=== PATIENT | female | born 1985 | race American Indian/Alaskan Native ===

== ENCOUNTER 2017-12-27 09:15 | Inpatient (IN) | payer OTHER ==
[~2017-12-27] VITALS: Ht 180.3 cm; Wt 100.0 kg
[~2017-12-27 09:15] MED LIST: CLARITIN10 MG PO; DOXYCYCLINE HY100 MG PO; NORCO 5-325 TA1 EACH PO
--- NOTE | 2017-12-28 10:28 | PR ---
[facility] [address] [facility] [place], [place] [address] Signed PP Progress Notes Datetime Report Generated by CPN: 12/28/2017 10:28 SUBJECTIVE: [id number] Pain: Within normal limits Vital Signs: [id number] Vital Signs: Reviewed; Within Normal Limits EXAM: [id number] Cardiovascular: Not Done Respiratory: Not Done Abdomen/Uterus: Abnormal Lochia: Normal Vulva/Perineum: Not Done Breasts: Not Done CVA Tenderness: Not Done Extremities: Normal Incision: Not Applicable Progress: Normal Exam Comments: Fundus firm, NT @ U-1. H/H 10.9/31.1, WBC 14.5, plat 360k IMPRESSION/PLAN/PROCEDURES: [id number] Impression: Normal progression Plan: Continue present management Procedures: None Progress Notes: Doing well. Signing Physician: Katarzyna Foster MD Copies: ~ *Electronically Signed* 12/28/17 1028 KATARZYNA FOSTER MD PATIENT NAME: CYNMELANIEZAYSORIN PROGRESS NOTE DATE OF : 89 PHYSICIAN: KATARZYNA FOSTER MD RPT #: [id number] REPORT IS CONFIDENTIAL AND NOT TO BE RELEASED WITHOUT AUTHORIZATION
== END 2017-12-29 12:35 | disposition home or self-care (01) | DRG 782 ==
LOC: FBC 09:15
PROVIDERS: ADMIT Obstetrics & Gynecology
DX: O62.3 Precipitate labor (principal); O99.325 Drug use complicating the puerperium; O99.825 Streptococcus B carrier state complicating the puerperium; F12.90 Cannabis use, unspecified, uncomplicated; O99.63 Diseases of the digestive system complicating the puerperium; K42.9 Umbilical hernia without obstruction or gangrene; Z3A.40 40 weeks gestation of pregnancy; Z86.19 Personal history of other infectious and parasitic diseases; Z87.891 Personal history of nicotine dependence
CPT/HCPCS: 36415; 85027

== ENCOUNTER 2021-11-16 05:35 | Inpatient (IN) | payer OTHER ==
--- NOTE | 2021-11-16 06:22 | NUR ---
CALLED TO ATTEND DELIVERY OF TERM BABY WITH THIN MECONIUM. BABY DELIVERED AND WAS INITIALLY PLACED ON MOM AND DELAYED CORD CLAMPING. BABY DID NOT CRY AND HAD CENTRAL CYANOSIS. BABY BROUGHT TO WARMER AND STIMULATED AND BEGAN TO CRY VERY WELL WITH IMMEDIATE PINKING OF THE SKIN. RN CHECKED LUNGS AND HR WAS IN THE 150'S. BABY RETURNED TO MOM IN VERY SHORT AMOUNT OF TIME.
--- NOTE | 2021-11-17 11:07 | PR ---
[facility] [address] [place], [place] [address] Signed PP Progress Notes Datetime Report Generated by CPN: 11/17/2021 11:06 SUBJECTIVE: [id number] Pain: Within Normal Limits Nausea/Vomiting: Denies Flatus: Yes Bowel Movement: No Vital Signs: [id number] Vital Signs: Reviewed; Within Normal Limits Cardiovascular: Normal Respiratory: Normal Abdomen/Uterus: Normal Lochia: Normal Vulva/Perineum: Not Done Breasts: Not Done CVA Tenderness: Normal Extremities: Normal Incision: Not Applicable Progress: Normal Exam Comments: Fundus firm. Difficult to palpate due to large ventral hernia. IMPRESSION/PLAN/PROCEDURES: [id number] Impression: Normal Progression Plan: Discharge Progress Notes: Pt seen and examined. Doing well. Ambulating, voiding, and tolerating full diet. Pain and lochia minimal. well. No fevers/chills or other concerns. Desires d/c home today. Planning natural family planning. Signing Physician: Lou Melendez DO Copies: ~ *Electronically Signed* 11/17/21 1106 LOU MELENDEZ DO PATIENT NAME: SORIN CRUZ [place] PROGRESS NOTE DATE OF : 89 PHYSICIAN: LOU MELENDEZ DO RPT #: [id number] REPORT IS CONFIDENTIAL AND NOT TO BE RELEASED WITHOUT AUTHORIZATION
== END 2021-11-17 11:47 | disposition home or self-care (01) | DRG 807 ==
LOC: FBCO → FBC 05:50 → FBCO 11-18 14:46
PROVIDERS: ADMIT Obstetrics & Gynecology; ATTEND Obstetrics & Gynecology
PROC: 10E0XZZ Delivery of Products of Conception, External Approach (ICD-10-PCS; principal; 2021-11-16)
DX: O62.3 Precipitate labor (principal); Z37.0 Single live birth; K43.9 Ventral hernia without obstruction or gangrene; Z3A.39 39 weeks gestation of pregnancy; Z67.31 Type AB blood, Rh negative; Z20.822 Contact with and (suspected) exposure to COVID-19; O77.0 Labor and delivery complicated by meconium in amniotic fluid; O69.81X0 Labor and delivery complicated by cord around neck, without compression, not applicable or unspecified
CPT/HCPCS: 36415; 85027; 86850; 86900; 86901; 87502; A9270; U0003

== ENCOUNTER 2022-04-19 23:41 | Emergency (ER) | payer OTHER ==
[~2022-04-19] VITALS: Ht 182.9 cm; Wt 100.2 kg
[2022-04-19] MEDS ORDERED: HYDROCODON-ACE1 EA10 PO (23:58)
[2022-04-20] MEDS ORDERED: SILVADENE20 GM TOP (00:14)
== END 2022-04-20 01:35 | disposition home or self-care (01) ==
LOC: ED 23:41
DX: T25.212A Burn of second degree of left ankle, initial encounter (principal); T25.211A Burn of second degree of right ankle, initial encounter; T24.111A Burn of first degree of right thigh, initial encounter; T31.0 Burns involving less than 10% of body surface; Z87.891 Personal history of nicotine dependence; X12.XXXA Contact with other hot fluids, initial encounter
CPT/HCPCS: 16020; 90471; 90715; 99283-25; A9270; J1170; J2405

== ENCOUNTER 2023-06-24 05:55 | Inpatient (IN) | payer OTHER ==
[~2023-06-24] VITALS: Ht 177.8 cm; Wt 115.7 kg
[~2023-06-24 05:55] MED LIST changes: +HYDROCODON-ACE1 EA10 PO; +SILVADENE20 GM TOP
[2023-06-24 06:51] LABS: HEMOGLOBIN 12.2 g/dL (12.0-18.0); MCH 30.2 (27-36)
[2023-06-24 06:54] VITALS: BP 123/78
[2023-06-24 06:54] LABS: HEMATOCRIT 36.3 % (35.0-50.0); MCHC 33.7 g/dl (30-36); MCV 89.9 fl (81-99); RBC 4.03 M/ul (4.3-5.7); RDW 13.1 (10.5-15.0)
[2023-06-24 06:59] LABS: AMPHETAMINES, UR NEGATIVE (NEGATIVE); BARBITURATES, UR NEGATIVE (NEGATIVE); BENZODIAZEPINES, UR NEGATIVE (NEGATIVE); BUPRENORPHINE,UR NEGATIVE (NEGATIVE); COCAINE, UR NEGATIVE (NEGATIVE); MARIJUANA (THC), UR NEGATIVE (NEGATIVE); MDMA, UR NEGATIVE (NEGATIVE); METHADONE, UR NEGATIVE (NEGATIVE); METHAMPHETAMINE, UR NEGATIVE (NEGATIVE); OPIATES, UR NEGATIVE (NEGATIVE); OXYCODONE, UR NEGATIVE (NEGATIVE); PHENCYCLIDINE, UR NEGATIVE (NEGATIVE); TRICYCLIC ANTIDEPRESSANT, UR NEGATIVE (NEGATIVE)
[2023-06-24 08:00] LABS: ABO AB; ANTIBODY SCREEN NEGATIVE; RH POSITIVE
--- NOTE | 2023-06-24 11:37 | PR ---
[facility] [place] [facility] [address] [place], [place] [address] Signed Progress Notes IP Datetime Report Generated by CPN: 06/24/2023 11:37 PROGRESS NOTES: [id number] Impression: Normal Progression of Labor; Reassuring Heart Rate Procedures: Sterile Vag Exam Plan: Continue Present Management Informed Consent Obtain: Vaginal Delivery VITAL SIGNS: [id number] Vital Signs: Reviewed; Within Normal Limits EXAM: [id number] Dilatation: 3.0 Effacement: 70 Station: -3 Contractions: Irregular, increasing in discomfort MEMBRANES: [id number] Comments: Doing well. More uncomfortable w/ contractions. Continues to leak clear fluid. Will continue expectant management FETUS A: [id number] FHR Baseline: 140 Variability: Moderate 6-25bpm Accelerations: 15X15 Decelerations: None FHR Category: Category I Presentation: Vertex Comments on Fetus A: No evidence of metabolic acidosis FETUS B: [id number] Signing Physician: Lou Melendez DO Copies: ~ *Electronically Signed* 06/24/23 1137 LOU MELENDEZ (GODFREY) DO PATIENT NAME: SORIN CRUZ [place] PROGRESS NOTE DATE OF : 89 PHYSICIAN: LOU MELENDEZ) DO RPT #: [id number] REPORT IS CONFIDENTIAL AND NOT TO BE RELEASED WITHOUT AUTHORIZATION
--- NOTE | 2023-06-24 16:55 | PR ---
[facility] [address] [facility] [place], [place] [address] Signed Progress Notes IP Datetime Report Generated by CPN: 06/24/2023 16:55 PROGRESS NOTES: [id number] Impression: Normal Progression of Labor; Reassuring Heart Rate Procedures: Sterile Vag Exam Plan: Continue Present Management; Anticipate Vaginal Delivery Informed Consent Obtain: Vaginal Delivery VITAL SIGNS: [id number] Vital Signs: Reviewed; Within Normal Limits EXAM: [id number] Dilatation: 6.0 Effacement: 90 Station: -2 Contractions: q 2-3 minutes MEMBRANES: [id number] Comments: Pt seen and examined. Doing well. More uncomfortable and pressure w/ contractions. Declines epidural. Pt denies concerns FETUS A: [id number] FHR Baseline: 140 Variability: Moderate 6-25bpm Accelerations: 15X15 Decelerations: None FHR Category: Category I Presentation: Vertex Comments on Fetus A: No evidence of metabolic acidosis FETUS B: [id number] Signing Physician: Lou Melendez DO Copies: ~ *Electronically Signed* 06/24/23 8017 LOU MELENDEZ (GODFREY) DO PATIENT NAME: SORIN CRUZ [place] PROGRESS NOTE DATE OF : 89 PHYSICIAN: LOU MELENDEZ (GODFREY) DO RPT #: [id number] REPORT IS CONFIDENTIAL AND NOT TO BE RELEASED WITHOUT AUTHORIZATION
[2023-06-25 05:49] LABS: HEMATOCRIT 33.4 % (35.0-50.0); HEMOGLOBIN 11.3 g/dL (12.0-18.0); MCH 30.1 (27-36); MCHC 33.7 g/dl (30-36); MCV 89.3 fl (81-99); RBC 3.74 M/ul (4.3-5.7); RDW 13.3 (10.5-15.0)
--- NOTE | 2023-06-25 06:44 | NUR ---
FOOD AND BEVERAGE ASSISTANT MANAGER ROUNDS. PT GONE FOR PROCEDURE. IN ROOM EVIDENCED STRONG EMOTIONAL AND RELATIONAL RESOURCES. RESPONDED APPROPRIATELY TO SITUATION. PROVIDED SUPPORTIVE PRESENCE, HOSPITALITY, AND PRAYER. EXPRESSED APPRECIATION.
--- NOTE | 2023-06-25 13:58 | NUR ---
FBC ROUNDS. 15 MINUTES. PT EVIDENCED STRONG RELATIONAL RESOURCES AND FAMILY SUPPORT. PROVIDED HOPSITALITY. PROVIDED PRAYER. PT EXPRESSED APPERICATION.
--- NOTE | 2023-06-25 14:10 | PR ---
[facility] [address] [facility] [place], [place] [address] Signed PP Progress Notes Datetime Report Generated by CPN: 06/25/2023 14:10 SUBJECTIVE: [id number] Pain: Within Normal Limits Nausea/Vomiting: Denies Flatus: Yes Bowel Movement: No Vital Signs: [id number] Vital Signs: Reviewed; Within Normal Limits Cardiovascular: Normal Respiratory: Normal Abdomen/Uterus: Abnormal Lochia: Normal CVA Tenderness: Normal Extremities: Normal Incision: Not Applicable Progress: Normal Exam Comments: Fundus firm U-2 nontender. Stable abdominal hernia IMPRESSION/PLAN/PROCEDURES: [id number] Impression: Normal Progression Plan: Discharge Progress Notes: Pt seen and examined. Doing well. Ambulating, voiding, and tolerating full diet. Pain and lochia minimal. well. No fevers/chills or other concerns. Desires d/c home. All questions answered. Reviewed discharge instructions. Planning tubal ligation for contraception Signing Physician: Lou Melendez DO Copies: ~ *Electronically Signed* 06/25/23 1403 LOU MELENDEZ (GODFREY) DO PATIENT NAME: SORIN CRUZ [place] PROGRESS NOTE DATE OF : 89 PHYSICIAN: LOU MELENDEZ) DO RPT #: [id number] REPORT IS CONFIDENTIAL AND NOT TO BE RELEASED WITHOUT AUTHORIZATION
== END 2023-06-25 20:40 | disposition home or self-care (01) | DRG 807 ==
LOC: FBC 05:55
PROVIDERS: ADMIT Obstetrics & Gynecology; ATTEND Obstetrics & Gynecology
PROC: 10E0XZZ Delivery of Products of Conception, External Approach (ICD-10-PCS; principal; 2023-06-24)
PROC: 3E033VJ Introduction of Other Hormone into Peripheral Vein, Percutaneous Approach (ICD-10-PCS; principal; 2023-06-24)
PROC: 4A1HXCZ Monitoring of Products of Conception, Cardiac Rate, External Approach (ICD-10-PCS; principal; 2023-06-24)
PROC: 10907ZC Drainage of Amniotic Fluid, Therapeutic from Products of Conception, Via Natural or Artificial Opening (ICD-10-PCS; principal; 2023-06-24)
DX: O24.420 Gestational diabetes mellitus in childbirth, diet controlled (principal); Z37.0 Single live birth; O36.63X0 Maternal care for excessive fetal growth, third trimester, not applicable or unspecified; Z3A.38 38 weeks gestation of pregnancy
CPT/HCPCS: 36415; 80307; 85027; 86850; 86900; 86901; A9270; J7042

== ENCOUNTER 2024-12-12 21:47 | Emergency (ER) | payer OTHER ==
[~2024-12-12] VITALS: Ht 182.9 cm; Wt 108.0 kg
[2024-12-12 22:37] LABS: BILIRUBIN, URINE NEGATIVE (negative); BLOOD/HGB, URINE LARGE (Negative); KETONE, URINE NEGATIVE (Negative); LEUK ESTERASE, URINE SMALL (negative); NITRITE, URINE POSITIVE (negative)
[2024-12-12 22:44] LABS: RED BLOOD CELLS, URINE 41-50 /hpf (0-5)
[2024-12-12 22:45] LABS: BACTERIA, URINE 1+ /hpf (negative); CASTS, URINE NONE SEEN \\lpf; COLLECTION TYPE, URINE CLEAN CATCH; CRYSTALS, URINE NONE SEEN (0-1+); EPITHELIAL CELLS, URINE SQUAMOUS 1+ /lpf (0-1+); REFLEX CULTURE, URINE Yes (No)
[2024-12-12] MEDS ORDERED: MACROBID 100 M100 MG PO (22:52)
[2024-12-12] MEDS ORDERED: PYRIDIUM200 MG PO (22:52)
[2024-12-12] MEDS ORDERED: PHENAZOPYRIDINE HCL 100 MG TAB PO ONE (23:00)
[2024-12-12] MEDS ORDERED: NITROFURANTOIN MONOHYD MACROCR 100 MG HOME.PACK PO ONE (23:00)
[2024-12-12 23:03] VITALS: BP 136/98
== END 2024-12-12 23:04 | disposition home or self-care (01) ==
LOC: ED 21:47
PROVIDERS: Family Medicine
DX: N39.0 Urinary tract infection, site not specified (principal); Z87.891 Personal history of nicotine dependence; Z79.899 Other long term (current) drug therapy
CPT/HCPCS: 81001; 99283

== ENCOUNTER 2024-12-30 05:55 | Day surgery (SDC) | payer OTHER ==
[~2024-12-30] VITALS: Ht 177.8 cm; Wt 110.0 kg
--- NOTE | ~2024-12-30 | OR ---
[facility] [address] [place], [place] [address] Draft DATE OF OPERATION: 12/30/2024 SURGEON: Lou Melendez DO PREOPERATIVE DIAGNOSES: 1. Desires salpingectomy. 2. Large ventral hernia. POSTOPERATIVE DIAGNOSES: 1. Desires salpingectomy. 2. Large ventral hernia. PROCEDURE PERFORMED: Laparoscopic bilateral salpingectomy. BOTTOM IRONER: None. ANESTHESIA: General. ESTIMATED BLOOD LOSS: 10 mL. SPECIMENS: Bilateral fallopian tubes. COMPLICATIONS: None. DRAINS: None. FINDINGS: Normal external genitalia with normal clitoris, urethral meatus, bilateral [place]'s, Bartholin's glands. Significant relaxation of the anterior compartment of the vagina with generally preserved posterior compartment and apical support. Normal cervix. On laparoscopy, normal uterus, tubes, and ovaries. Large ventral hernia with some periumbilical omental adhesions. PATIENT NAME: NANCY,[place] OPERATIVE REPORT DATE OF : 89 REPORT #: [id number] PHYSICIAN: LOU MELENDEZ DO (JD) PCP: [facility] REPORT IS CONFIDENTIAL AND NOT TO BE RELEASED WITHOUT AUTHORIZATION [facility] [address] [place] [address] Draft INDICATIONS: Ms. Freeman is a very pleasant 39-year-old multiparous female who presents for scheduled bilateral salpingectomy. She desires salpingectomy for sterilization and for ovarian cancer risk reduction. She has known history of a large ventral hernia with upcoming planned repair and her surgeon had requested that a tubal ligation be performed prior to hernia repair. Risks, benefits, and alternatives were discussed in detail with the patient. The patient understands and wishes to proceed the procedure. DESCRIPTION OF PROCEDURE: The patient was taken the OR. A time-out was performed to confirm correct patient, correct procedure. General anesthesia was established. The patient was prepped and draped in dorsal lithotomy position with feet in Yellofin stirrups. ICPs were on and running. No preoperative antibiotics or heparin was indicated. A Tesfaye catheter was inserted. A weighted speculum was placed in the vagina and the anterior lip of the cervix was grasped with Allis clamp and the cervix was gently dilated using Hegar dilators. A GameGeneticslka uterine manipulator was placed without difficulty. Significant anterior compartment relaxation was noted, however, generally preserved apical support and posterior compartment. Surgeon's gloves were changed and the attention was turned to the abdomen. Just inferior to the umbilicus, the skin was infiltrated with 0.25% Marcaine with epinephrine. This was noted to be well below her palpable large ventral hernia. A curvilinear incision was made through the skin and the fascia was grasped, elevated, and entered sharply with Metzenbaum scissors. 0 Vicryl stay sutures were placed in the superior and inferior edge of the fascial incision. Peritoneum was entered bluntly and some omental adhesions were palpated superior to the incision. A Raul operative port was placed. Pneumoperitoneum was established. Survey of the abdomen and pelvis was performed. A 5 mm miner assistant ports were placed in the left lower and right lower quadrant under direct visualization without complication. Large ventral hernia and scant omental adhesion were noted as expected. Pelvis was free of adhesions. The right fallopian tube was grasped. The fimbriated end elevated and divided along the mesosalpinx using LigaSure device. The tube was amputated at the cornu and excellent hemostasis was appreciated. The tube was then delivered through the laparoscopic port and sent to Pathology for further evaluation. The process was repeated on the left side without difficulty with excellent hemostasis appreciated. Additional pictures of the omental adhesions and hernia were taken and will be provided to the patient to pass to her general surgeon to assist with any perioperative planning as needed. Pneumoperitoneum was reduced. Trocars were removed and infraumbilical fascia was repaired using 0 Vicryl in a running nonlocked manner. Stay sutures were plicated to reinforce the fascial closure. Skin was reapproximated using 3-0 Vicryl repeat and subcuticular stitch with excellent hemostasis cosmesis. The Hulka uterine manipulator was removed. The Tesfaye catheter was removed as well. The patient was then taken to PACU in good and stable condition. PATIENT NAME: NANCY,[place] OPERATIVE REPORT DATE OF : 89 REPORT #: [id number] PHYSICIAN: LOU MELENDEZ DO (JD) PCP: [facility] REPORT IS CONFIDENTIAL AND NOT TO BE RELEASED WITHOUT AUTHORIZATION [facility] [address] [place] [address] Draft Sponge, needle, and instrument counts were correct x2 at the end of the procedure. Lou Melendez DO JDW/MODL /[id number] Copies: ~ PATIENT NAME: SORIN [place]RE[place] OPERATIVE REPORT DATE OF : 89 REPORT #: [id number] PHYSICIAN: LOU MELENDEZ DO (JD) PCP: [facility] REPORT IS CONFIDENTIAL AND NOT TO BE RELEASED WITHOUT AUTHORIZATION
[~2024-12-30 05:55] MED LIST changes: +LACTATED RINGER'S 1,000 ML IV SCH; +MACROBID 100 M100 MG PO; +PYRIDIUM200 MG PO
[2024-12-30 06:06] VITALS: BP 125/69
[2024-12-30] MEDS ORDERED: LIDOCAINE HCL 1% 5 ML SDV INJ ONE (07:00)
[2024-12-30] MEDS ORDERED: IBLOOD GLUCOSE TEST STRIP 1 EA TEST VI PRN (07:00)
[2024-12-30] MEDS ORDERED: propofoL 200 MG/20 ML VIAL ONE (07:12)
[2024-12-30] MEDS ORDERED: dexmedeTOMIDine HCl 200 MCG/2 ML VIAL ONE (07:12)
[2024-12-30] MEDS ORDERED: ROCURONIUM BROMIDE 50 MG/5 ML SYR ONE ×2 (07:12→08:04)
[2024-12-30] MEDS ORDERED: LIDOCAINE HCL 2% 5 ML SDV ONE (07:12)
[2024-12-30] MEDS ORDERED: KETAMINE in NS 50 MG/5 ML SYR ONE (07:13)
[2024-12-30] MEDS ORDERED: LIDOCAINE HCL 4% 5 ML AMP ONE (07:18)
[2024-12-30] MEDS ORDERED: DEXAMETHASONE SOD PHOS 4 MG/ML VIAL ONE (07:24)
[2024-12-30] MEDS ORDERED: ondansetron HCL 4 MG/2 ML VIAL ONE (07:25)
[2024-12-30] MEDS ORDERED: SUGAMMADEX SODIUM 200 MG/2 ML ML ONE ×2 (07:27→08:35)
[2024-12-30] MEDS ORDERED: ePHEDrine sulfate 50 MG/ML AMP ONE (07:51)
[2024-12-30] MEDS ORDERED: ACETAMINOPHEN 1,000 MG/100 ML VIAL ONE (08:10)
[2024-12-30] MEDS ORDERED: KETOROLAC TROMETHAMINE 30 MG/ML VIAL ONE (08:10)
--- NOTE | 2024-12-30 09:04 | NUR ---
12/30/24 0904 Sarah Schwab 0842-PT ARRIVES TO PACU, VIA STRETCHER, RESTING SEMI FOWLERS, PT NOT RESPONSIVE TO NOXIOUS STIMULI, OPA IN PLACE, VSS ON 6L VIA MASK, RR EVEN AND UNLABORED. 0857-PT AWAKENS ON OWN, OPA REMOVES AND TITRATED TO RA, VS REMAIN STABLE. PT DENIES PAIN OR NAUSEA, FALLS BACK TO SLEEP EASILY, RR EVEN AND UNLABORED.
[2024-12-30] MEDS ORDERED: fentaNYL citrate 50 MCG/ML SDV ONE (09:14)
[2024-12-30] MEDS ORDERED: NALOXONE HCL 0.4 MG SYR IV PRN (09:30)
[2024-12-30] MEDS ORDERED: MIDAZOLAM HCL 2 MG/2 ML VIAL IV PRN (09:30)
[2024-12-30] MEDS ORDERED: HYDROmorphone HCL 1 MG/ML SYR IV PRN (09:30)
[2024-12-30] MEDS ORDERED: ondansetron HCL 4 MG/2 ML VIAL IV PRN (09:30)
[2024-12-30] MEDS ORDERED: droPERidol 5 MG/2 ML VIAL IV PRN (09:30)
[2024-12-30] MEDS ORDERED: fentaNYL citrate 50 MCG/ML SDV IV PRN (09:30)
[2024-12-30] MEDS ORDERED: diphenhydrAMINE HCL 50 MG/ML VIAL IV PRN (09:30)
[2024-12-30 09:39] VITALS: BP 115/77
--- NOTE | 2024-12-30 09:42 | NUR ---
LE 0938: PT IS BACK TO DS FROM PACU. SHE IS BACK TO BASELINE. SHE IS TOLERATING WATER. NO COMPLAINTS OF PAIN/NAUSEA. CALL LIGHT WITHIN REACH. SHE WOULD LIKE CAL EDMOND. DC CRITERIA REVIEWED WITH PT.
[2024-12-30 10:48] VITALS: BP 120/66
--- NOTE | 2024-12-30 11:10 | NUR ---
1048: VS CHECKED. ABDOMINAL SITES X 3 WITH BANDAIDS. ALL THREE BANDAIDS CLEAN, DRY AND INTACT. DENIES PAIN. TOLERATED WATER AND PUDDING. NO NEEDS AT THIS TIME. CALL LIGHT WITHIN REACH.
--- NOTE | 2024-12-30 11:13 | NUR ---
1050-PT SITTING AT BEDSIDE. DENIES NASUEA OR DIZZINESS. PT AMBULATES TO RESTROOM. GAIT STEADY AND TOLERATED WELL. PT VOIDS 700ML OF YELLOW URINE. 1055-PT AMBULATES BACK TO ROOM. DENIES NASUEA. NO OTHER NEEDS AT THIS TIME CALL LIGHT WITHIN REACH.
--- NOTE | 2024-12-30 12:06 | NUR ---
LE 1129: GOT VERBAL ORDER FROM DR. CEJA FOR DISCHARGE. LE 1135: PT INDICATES THAT SHE WOULD LIKE TO GO HOME AT THIS TIME. SHE IS EDUCATE ON HOW TO BEST DRESS HERSELF AND TO OPEN HER CURTAIN WHEN READY. LE 1137: PT'S SON IS CALLED AND NOTIFIED THAT SHE IS READY FOR DISCHARGE AND TO BE PICKED UP. HE IS ON HIS WAY. LE 1138: PT IS GIVEN VERBAL AND WRITTEN DC INSTRUCTIONS. SHE VERBAILZES UNDERSTANDING. QUESTIONS ARE ASKED AND ANSWERED. LE 1145: PT IS TAKEN TO PERSONAL VEHICLE VIA WC. SHE IS ABLE TO TRANSFER HERSELF WITHOUT ISSUES.
[2024-12-30] MEDS ORDERED: SEVOFLURANE 250 ML BTL INH ONE (13:45)
--- NOTE | 2025-01-01 17:16 | PATH ---
[facility] [address] [place], [place] [address] Signed SPECIMEN(S): A FALLOPIAN TUBES, BILATERAL SPECIMEN SOURCE: A. FALLOPIAN TUBES, BILATERAL CLINICAL HISTORY: Prophylactic for risk reduction for ovarian ca FINAL PATHOLOGIC DIAGNOSIS: Bilateral fallopian tubes: - Two segments of benign fimbriated oviduct. JVR:jayme MICROSCOPIC EXAMINATION: Histologic sections of all submitted blocks are examined by light microscopy. These findings, together with the gross examination, support the pathologic diagnosis. GROSS DESCRIPTION: The specimen, labeled and designated "Ria Freeman, bilateral fallopian tubes," is received in formalin and consists of two undesignated fallopian tubes that measure 5.7 x 1.2 cm and 6.9 x 0.8 cm. The serosal surfaces are violaceous and smooth with delicate fimbriae. One tube is arbitrarily inked. Fimbriae are entirely submitted. Appliance Service Supervisor sections are submitted in (A1-A2). FB (under the direct supervision of a pathologist) The Gross Description was prepared using a voice recognition system. The report was reviewed for accuracy; however, sound-alike word errors, addition and/or deletions may occur. If there is any question about this report, please contact Client Services. PERFORMING LABORATORY: Technical component was performed by [employer], [address] [place] [id number] (CLIA# [id number]). Professional interpretation was performed by [employer] [facility], [address] [place] [id number] (CLIA#: [id number]). Diagnostician: Anupam Gibson MD Pathologist Electronically Signed 01/01/2025 PATIENT NAME: SORIN FREEMAN [place] [facility] DATE OF : 89 REPORT #: [id number] PHYSICIAN: DANIELLE PATHOLOGY PCP: [facility] REPORT IS CONFIDENTIAL AND NOT TO BE RELEASED WITHOUT AUTHORIZATION [address] [address] Signed Copies: ~ PATIENT NAME: SORIN FREEMAN [place] [facility] DATE OF : 89 REPORT #: [id number] PHYSICIAN: DANIELLE PATHOLOGY PCP: [facility] REPORT IS CONFIDENTIAL AND NOT TO BE RELEASED WITHOUT AUTHORIZATION
== END 2024-12-30 11:45 | disposition home or self-care (01) ==
LOC: DS 05:55
PROVIDERS: ATTEND Obstetrics & Gynecology
PROC: 0UT74ZZ Resection of Bilateral Fallopian Tubes, Percutaneous Endoscopic Approach (ICD-10-PCS; principal; 2024-12-30 07:30)
DX: Z40.03 Encounter for prophylactic removal of fallopian tube(s) (principal); K43.9 Ventral hernia without obstruction or gangrene; K66.0 Peritoneal adhesions (postprocedural) (postinfection)
CPT/HCPCS: 00840; J0131; J1100; J1885; J2003; J2405; J2704; J3010; J3490; J7121